=== PATIENT | male | born 1950 | race Hispanic/Latino ===

== ENCOUNTER 2020-11-22 16:48 | Emergency (ER) | payer OTHER ==
[~2020-11-22] VITALS: Ht 182.9 cm; Wt 112.9 kg
[2020-11-22 17:00] VITALS: BP 177/87; TEMP 98.4
== END 2020-11-22 18:07 | disposition home or self-care (01) ==
LOC: ED 16:48
DX: Z20.822 Contact with and (suspected) exposure to COVID-19 (principal)
CPT/HCPCS: 87635; 99282; U0003